=== PATIENT | female | born 1995 | race Caucasian/White ===

== ENCOUNTER 2021-10-15 20:42 | Outpatient (REF) | payer OTHER, SELFPAY ==
[2021-10-15 21:18] LABS: COVID-19 Test Negative (Negative)
== END 2021-10-15 20:43 | disposition home or self-care (01) ==
LOC: HO.LNP 20:42
PROVIDERS: Visit Provider Internal Medicine
DX: Z20.822 Contact with and (suspected) exposure to COVID-19 (principal)
CPT/HCPCS: 87635